=== PATIENT | female | born 1940 | race Caucasian/White ===

== ENCOUNTER 2022-01-13 14:17 | Inpatient (IN) | payer MEDICARE, MEDICAID ==
[~2022-01-13] VITALS: Ht 152.4 cm; Wt 48.6 kg
[2022-01-13] VITALS (22 sets, daily range): BP systolic 80–202; BP diastolic 21–108
[~2022-01-13 14:17] MED LIST: TRAM50TA3 PO
[2022-01-13] MEDS ORDERED: ATROPINE SULFATE 0.1MG/ML 10ML DISP.SYRIN IV ONE (14:45)
[2022-01-13] MEDS ORDERED: ATROPINE SULFATE 1MG/ML VIAL IV PRN (15:00)
[2022-01-13 15:40] LABS: BASOPHILS % 0.5 % (0.0-2.0); EOSINOPHILS % 2.4 % (0.0-5.0); HEMATOCRIT. 28.3 % (36.0-48.0); HEMOGLOBIN. 9.6 g/dL (12.0-16.0); LYMPHOCYTES % 24.1 % (20.0-50.0); MEAN CORPUSCULAR HEMOGLOBIN 29.3 pg (28.0-32.0); MEAN CORPUSCULAR VOLUME 86.7 fL (81.0-99.0); MEAN PLATELET VOLUME 9.2 fl (7.4-10.4); MONOCYTES % 10.5 % (2.0-8.0); NEUTROPHILS % 62.5 % (40.0-76.0); PLATELET 77 x1000/uL (130-400); RED BLOOD CELL COUNT 3.27 mill/uL (4.2-5.4); RED CELL DISTRIBUTION WIDTH 14.8 % (11.6-14.6)
[2022-01-13 15:45] LABS: PROTHROMBIN TIME 11.2 sec (9.6-11.0)
[2022-01-13 15:48] LABS: CHLORIDE 111 mEq/L (98-107)
[2022-01-13 16:35] LABS: CLARITY URINE TURBID (CLEAR); COLOR URINE RED (YELLOW); KETONES URINE NEGATIVE (NEGATIVE); LEUKOCYTE ESTERASE URINE 2+ (NEGATIVE); NITRITE URINE POSITIVE (NEGATIVE); OCCULT BLOOD URINE 2+ (NEGATIVE); PROTEIN URINE 3+ (NEGATIVE); SPECIFIC GRAVITY URINE 1.013 (1.005-1.030); UROBILINOGEN URINE 0.2 E.U./dL (0.2-1.0)
[2022-01-13] MEDS ORDERED: DOPAMINE 400MG/250ML PREMIX 250 ML IV ONE (16:45)
[2022-01-13 17:16] LABS: *AMPHETAMINES SCREEN URINE NEGATIVE (NEGATIVE); *BARBITURATES SCREEN URINE NEGATIVE (NEGATIVE); *BENZODIAZEPINES SCREEN URINE NEGATIVE (NEGATIVE); *COCAINE SCREEN URINE NEGATIVE (NEGATIVE); CANNABINOID URINE SCREEN NEGATIVE (NEGATIVE); METHADONE URINE SCREEN NEGATIVE (NEGATIVE); OPIATES URINE SCREEN NEGATIVE (NEGATIVE); PHENCYCLIDINE URINE SCREEN NEGATIVE (NEGATIVE)
[2022-01-13] MEDS ORDERED: DOPAMINE 400MG/250ML PREMIX 250 ML IV PRN (20:00)
[2022-01-13] MEDS ORDERED: ATROPINE SULFATE 1MG/10ML SYR IV PRN (20:00)
[2022-01-13] MEDS ORDERED: NALOXONE HCL 0.4MG/ML VIAL IV PRN (20:15)
[2022-01-13] MEDS: MORPHINE SULFATE 2 MG/ML CPJ (NOT FOR IM USE) IV PRN (20:18)
[2022-01-13] MEDS ORDERED: LORAZEPAM 2MG/ML CPJ IV PRN (20:45)
[2022-01-13] MEDS ORDERED: ONDANSETRON HCL 4MG/2ML INJ IV PRN (20:45)
[2022-01-13] MEDS ORDERED: CLONIDINE 0.1MG TABLET PO PRN (20:45)
[2022-01-13] MEDS ORDERED: GUAIFENESIN 200MG/10ML SUGAR FREE UDC PO PRN (20:45)
[2022-01-13] MEDS ORDERED: ACETAMINOPHEN 325MG TABLET PO PRN (20:45)
[2022-01-13] MEDS ORDERED: ACETAMINOPHEN 650MG SUPP PR PRN ×2 (20:45)
[2022-01-13] MEDS ORDERED: DOCUSATE SODIUM 100MG CAPSULE PO PRN (20:45)
[2022-01-13] MEDS ORDERED: MAGNESIUM/ALUMINUM HYDROXIDE/SIMETHICONE 30ML UDC PO PRN (20:45)
[2022-01-13] MEDS ORDERED: IPRATROPIUM/ALBUTEROL 0.5-3(2.5)MG/3ML NEB HHN PRN (20:45)
[2022-01-13] MEDS ORDERED: LISI20TA31 PO (21:43)
[2022-01-13] MEDS ORDERED: CYAN25004 SL (21:44)
[2022-01-14] VITALS (49 sets, daily range): BP systolic 114–175; BP diastolic 19–127
[2022-01-14] MEDS: PIPERACILLIN/TAZOBACTAM 3.375 G in DEXTROSE 5% WATER 50 ML IV SCH ×3 (00:12→13:31)
[2022-01-14] MEDS ORDERED: VITA250012 MT (02:40)
[2022-01-14] MEDS ORDERED: CIPR250S3 PO (02:40)
[2022-01-14] MEDS: MORPHINE SULFATE 2 MG/ML CPJ (NOT FOR IM USE) IV PRN (03:46)
[2022-01-14 06:08] LABS: CHLORIDE 113 mEq/L (98-107)
[2022-01-14 06:11] LABS: BASOPHILS % 0.3 % (0.0-2.0); EOSINOPHILS % 0.5 % (0.0-5.0); HEMATOCRIT. 25.2 % (36.0-48.0); HEMOGLOBIN. 8.4 g/dL (12.0-16.0); LYMPHOCYTES % 15.4 % (20.0-50.0); MEAN CORPUSCULAR HEMOGLOBIN 28.8 pg (28.0-32.0); MEAN CORPUSCULAR VOLUME 86.2 fL (81.0-99.0); MEAN PLATELET VOLUME 9.4 fl (7.4-10.4); MONOCYTES % 13.8 % (2.0-8.0); PLATELET 69 x1000/uL (130-400); RED BLOOD CELL COUNT 2.92 mill/uL (4.2-5.4); RED CELL DISTRIBUTION WIDTH 14.8 % (11.6-14.6)
[2022-01-14 06:21] LABS: HDL CHOLESTEROL 31 mg/dL (40-59); LDL CHOLESTEROL 53 mg/dL (5-100)
[2022-01-14 06:31] LABS: CREATINE KINASE 185 IU/L (26-192)
[2022-01-14] MEDS: SODIUM CHLORIDE 0.9% 500 ML IV SCH ×2 (10:33→16:40)
[2022-01-14 12:35] LABS: T4 FREE 1.21 ng/dL (0.76-1.46)
[2022-01-14 16:02] LABS: CREATINE KINASE MB FRACTION 4.7 ng/mL (0.5-3.6)
[2022-01-14] MEDS: LISINOPRIL 20MG TABLET PO SCH (17:45)
[2022-01-14] MEDS: PANTOPRAZOLE 40MG DR TABLET PO SCH (18:12)
[2022-01-14] MEDS ORDERED: CEFTRIAXONE 1 G PREMIX 50 ML IV SCH (21:15)
[2022-01-14] MEDS: SODIUM CHLORIDE 0.9% 1,000 ML IV SCH (21:56)
[2022-01-14] MEDS: CEFTRIAXONE 1,000 MG in DEXTROSE 5% WATER 50 ML IV SCH (23:05)
[2022-01-15] VITALS (36 sets, daily range): BP systolic 101–175; BP diastolic 26–98
[2022-01-15] MEDS: HYDRALAZINE 20MG/ML VIAL IV PRN (00:32)
[2022-01-15 00:47] LABS: HEMATOCRIT 24.8 % (36.0-48.0); HEMOGLOBIN 8.3 g/dL (12.0-16.0)
[2022-01-15 01:27] LABS: CREATINE KINASE MB FRACTION 3.9 ng/mL (0.5-3.6)
[2022-01-15 06:02] LABS: CHLORIDE 114 mEq/L (98-107)
[2022-01-15 06:18] LABS: HEMATOCRIT 24.4 % (36.0-48.0); HEMOGLOBIN 8.2 g/dL (12.0-16.0); MEAN CORPUSCULAR HEMOGLOBIN 29.1 pg (28.0-32.0); MEAN CORPUSCULAR VOLUME 86.7 fL (81.0-99.0); PLATELET 58 x1000/uL (130-400); RED BLOOD CELL COUNT 2.81 mill/uL (4.2-5.4); RED CELL DISTRIBUTION WIDTH 15.1 % (11.6-14.6)
[2022-01-15 06:23] LABS: CREATINE KINASE 348 IU/L (26-192); CREATINE KINASE MB FRACTION 3.8 ng/mL (0.5-3.6)
[2022-01-15 06:29] LABS: HAPTOGLOBIN < 8 mg/dL (30-200)
[2022-01-15] MEDS: ACETAMINOPHEN 325MG TABLET PO PRN (07:44)
[2022-01-15] MEDS: PANTOPRAZOLE 40MG DR TABLET PO SCH (07:44)
[2022-01-15] MEDS: LISINOPRIL 20MG TABLET PO SCH ×3 (09:00→17:43)
[2022-01-15 16:24] LABS: CLARITY URINE CLOUDY (CLEAR); COLOR URINE YELLOW (YELLOW); KETONES URINE NEGATIVE (NEGATIVE); LEUKOCYTE ESTERASE URINE 3+ (NEGATIVE); NITRITE URINE NEGATIVE (NEGATIVE); OCCULT BLOOD URINE 3+ (NEGATIVE); PH URINE 5.5 (4.5-8.0); PROTEIN URINE 1+ (NEGATIVE); SPECIFIC GRAVITY URINE 1.014 (1.005-1.030); UROBILINOGEN URINE 0.2 E.U./dL (0.2-1.0)
[2022-01-15 18:31] LABS: HEMATOCRIT. 26.2 % (36.0-48.0); HEMOGLOBIN. 8.7 g/dL (12.0-16.0); MEAN CORPUSCULAR HEMOGLOBIN 28.8 pg (28.0-32.0); MEAN CORPUSCULAR VOLUME 86.6 fL (81.0-99.0); MEAN PLATELET VOLUME 9.6 fl (7.4-10.4); PLATELET 60 x1000/uL (130-400); RED BLOOD CELL COUNT 3.03 mill/uL (4.2-5.4); RED CELL DISTRIBUTION WIDTH 15.3 % (11.6-14.6)
[2022-01-15 20:00] LABS: PLATELET ESTIMATE DECREASED
[2022-01-15] MEDS: CEFTRIAXONE 1,000 MG in DEXTROSE 5% WATER 50 ML IV SCH (21:44)
[2022-01-15] MEDS: SODIUM CHLORIDE 0.9% 1,000 ML IV SCH (21:44)
[2022-01-16] VITALS (25 sets, daily range): BP systolic 82–175; BP diastolic 31–80
[2022-01-16] MEDS: HYDRALAZINE 20MG/ML VIAL IV PRN (02:20)
[2022-01-16 06:02] LABS: BASOPHILS % 0.7 % (0.0-2.0); EOSINOPHILS % 1.8 % (0.0-5.0); HEMATOCRIT. 27.5 % (36.0-48.0); HEMOGLOBIN. 9.2 g/dL (12.0-16.0); LYMPHOCYTES % 17.2 % (20.0-50.0); MEAN CORPUSCULAR HEMOGLOBIN 29.1 pg (28.0-32.0); MEAN CORPUSCULAR VOLUME 86.4 fL (81.0-99.0); MEAN PLATELET VOLUME 9.9 fl (7.4-10.4); MONOCYTES % 10.3 % (2.0-8.0); PLATELET 80 x1000/uL (130-400); RED BLOOD CELL COUNT 3.18 mill/uL (4.2-5.4); RED CELL DISTRIBUTION WIDTH 15.2 % (11.6-14.6)
[2022-01-16] MEDS: PANTOPRAZOLE 40MG DR TABLET PO SCH (08:01)
[2022-01-16] MEDS: LISINOPRIL 20MG TABLET PO SCH ×2 (08:02→18:02)
[2022-01-16 09:11] LABS: ANTI-NUCLEAR ANTIBODIES DIRECT Negative (Negative); IMMUNOGLOBULIN A 452 mg/dL (64-422); IMMUNOGLOBULIN G 1334 mg/dL (586-1602); IMMUNOGLOBULIN M 180 mg/dL (26-217)
[2022-01-16 09:30] LABS: CREATINE KINASE 269 IU/L (26-192)
[2022-01-16] MEDS: ACETAMINOPHEN 325MG TABLET PO PRN (14:14)
[2022-01-16] MEDS: CEFTRIAXONE 1,000 MG in DEXTROSE 5% WATER 50 ML IV SCH (21:29)
[2022-01-17] VITALS (51 sets, daily range): BP systolic 90–172; BP diastolic 30–130
[2022-01-17] MEDS: SODIUM CHLORIDE 0.9% 1,000 ML IV SCH ×2 (01:25→21:16)
[2022-01-17] MEDS: HYDRALAZINE 20MG/ML VIAL IV PRN ×2 (03:26→18:53)
[2022-01-17 05:46] LABS: HEMATOCRIT 23.6 % (36.0-48.0); HEMOGLOBIN 8.1 g/dL (12.0-16.0); MEAN CORPUSCULAR HEMOGLOBIN 29.7 pg (28.0-32.0); PLATELET 52 x1000/uL (130-400); RED BLOOD CELL COUNT 2.74 mill/uL (4.2-5.4); RED CELL DISTRIBUTION WIDTH 15.2 % (11.6-14.6)
[2022-01-17] MEDS: PANTOPRAZOLE 40MG DR TABLET PO SCH (08:48)
[2022-01-17] MEDS: LISINOPRIL 20MG TABLET PO SCH ×2 (08:49→17:15)
[2022-01-17] MEDS: CEFTRIAXONE 1,000 MG in DEXTROSE 5% WATER 50 ML IV SCH (20:03)
[2022-01-18] VITALS (33 sets, daily range): BP systolic 90–181; BP diastolic 24–113
[2022-01-18] MEDS: HYDRALAZINE 20MG/ML VIAL IV PRN ×2 (05:35→22:21)
[2022-01-18 06:02] LABS: HEMATOCRIT 24.6 % (36.0-48.0); HEMOGLOBIN 8.5 g/dL (12.0-16.0); MEAN CORPUSCULAR HEMOGLOBIN 29.9 pg (28.0-32.0); MEAN CORPUSCULAR VOLUME 86.9 fL (81.0-99.0); PLATELET 55 x1000/uL (130-400); RED BLOOD CELL COUNT 2.83 mill/uL (4.2-5.4); RED CELL DISTRIBUTION WIDTH 15.2 % (11.6-14.6)
[2022-01-18] MEDS: LISINOPRIL 20MG TABLET PO SCH ×2 (09:03→17:21)
[2022-01-18] MEDS: PANTOPRAZOLE 40MG DR TABLET PO SCH (09:03)
[2022-01-18] MEDS: CEFTRIAXONE 1,000 MG in DEXTROSE 5% WATER 50 ML IV SCH (21:15)
[2022-01-19] VITALS (46 sets, daily range): BP systolic 111–178; BP diastolic 23–130
[2022-01-19] MEDS: SODIUM CHLORIDE 0.9% 1,000 ML IV SCH (00:55)
[2022-01-19 05:15] LABS: CLARITY URINE CLOUDY (CLEAR); COLOR URINE YELLOW (YELLOW); KETONES URINE NEGATIVE (NEGATIVE); LEUKOCYTE ESTERASE URINE 2+ (NEGATIVE); NITRITE URINE NEGATIVE (NEGATIVE); OCCULT BLOOD URINE 3+ (NEGATIVE); PROTEIN URINE 2+ (NEGATIVE); SPECIFIC GRAVITY URINE 1.018 (1.005-1.030); UROBILINOGEN URINE 0.2 E.U./dL (0.2-1.0)
[2022-01-19 06:04] LABS: BASOPHILS % 0.5 % (0.0-2.0); EOSINOPHILS % 2.5 % (0.0-5.0); HEMATOCRIT. 26.7 % (36.0-48.0); HEMOGLOBIN. 9.1 g/dL (12.0-16.0); LYMPHOCYTES % 17.2 % (20.0-50.0); MEAN CORPUSCULAR HEMOGLOBIN 29.7 pg (28.0-32.0); MEAN CORPUSCULAR VOLUME 87.3 fL (81.0-99.0); MEAN PLATELET VOLUME 10.1 fl (7.4-10.4); MONOCYTES % 9.5 % (2.0-8.0); NEUTROPHILS % 70.3 % (40.0-76.0); PLATELET 70 x1000/uL (130-400); RED BLOOD CELL COUNT 3.06 mill/uL (4.2-5.4); RED CELL DISTRIBUTION WIDTH 15.7 % (11.6-14.6)
[2022-01-19 06:11] LABS: INR 1.1; PROTHROMBIN TIME 11.8 sec (9.6-11.0)
[2022-01-19 07:15] LABS: CHLORIDE 118 mEq/L (98-107)
[2022-01-19] MEDS: PANTOPRAZOLE 40MG DR TABLET PO SCH (08:20)
[2022-01-19] MEDS: HYDRALAZINE 20MG/ML VIAL IV PRN (09:25)
[2022-01-19] MEDS: CEFTRIAXONE 1,000 MG in DEXTROSE 5% WATER 50 ML IV SCH (21:25)
[2022-01-20] VITALS (62 sets, daily range): BP systolic 107–185; BP diastolic 30–105
[2022-01-20] MEDS: ACETAMINOPHEN 325MG TABLET PO PRN (02:19)
[2022-01-20] MEDS: SODIUM CHLORIDE 0.9% 1,000 ML IV SCH ×2 (03:16→21:30)
[2022-01-20] MEDS: HYDRALAZINE 20MG/ML VIAL IV PRN ×2 (03:17→12:06)
[2022-01-20 04:30] LABS: HEMATOCRIT 23.3 % (36.0-48.0); HEMOGLOBIN 7.8 g/dL (12.0-16.0); MEAN CORPUSCULAR HEMOGLOBIN 29.6 pg (28.0-32.0); MEAN CORPUSCULAR VOLUME 88.2 fL (81.0-99.0); PLATELET 57 x1000/uL (130-400); RED BLOOD CELL COUNT 2.64 mill/uL (4.2-5.4)
[2022-01-20 04:49] LABS: INR 1.2; PROTHROMBIN TIME 12.6 sec (9.6-11.0)
[2022-01-20] MEDS: PANTOPRAZOLE 40MG DR TABLET PO SCH (07:20)
[2022-01-20] MEDS ORDERED: IODIXANOL 320MG/ML 100 ML BOTTLE IV ONE (09:01)
[2022-01-20] MEDS ORDERED: LIDOCAINE HCL/PF 1% 10 MG/ML 5ML VIAL ONE (09:10)
[2022-01-20] MEDS ORDERED: GENTAMICIN/NS IRRIGATION 500 ML IR ONE (09:10)
[2022-01-20] MEDS ORDERED: CEFAZOLIN SODIUM 1000MG/VIAL ONE (09:25)
[2022-01-20] MEDS ORDERED: FENTANYL CITRATE/PF 50MCG/ML 2ML VIAL ONE (09:29)
[2022-01-20] MEDS ORDERED: PROPOFOL 200MG/20ML VIAL IV ONE (09:29)
[2022-01-20] MEDS ORDERED: MIDAZOLAM HCL 2 MG/2 ML VIAL ONE (09:30)
[2022-01-20] MEDS ORDERED: GLYCOPYRROLATE 0.2 MG/ML 2ML VIAL ONE (09:42)
[2022-01-20] MEDS ORDERED: ONDANSETRON HCL 4MG/2ML INJ IV PRN (10:00)
[2022-01-20] MEDS ORDERED: LABETALOL 5MG/ML SYR 20 MG/4 ML SYRINGE IV PRN (10:00)
[2022-01-20] MEDS ORDERED: MEPERIDINE HCL/PF 25MG/ML CPJ IV PRN (10:00)
[2022-01-20] MEDS ORDERED: HYDROMORPHONE HCL/PF 2MG/ML CPJ IV PRN (10:00)
[2022-01-20] MEDS ORDERED: GENTAMICIN SULF 40MG/ML 2ML VIAL ONE (10:18)
[2022-01-20] MEDS ORDERED: HYDROCODONE/ACETAMINOPHEN 5/325MG TABLET PO PRN (15:45)
[2022-01-21] VITALS (36 sets, daily range): BP systolic 128–205; BP diastolic 25–95
[2022-01-21 05:40] LABS: HEMATOCRIT. 24.2 % (36.0-48.0); HEMOGLOBIN. 8.3 g/dL (12.0-16.0); MEAN CORPUSCULAR HEMOGLOBIN 30.3 pg (28.0-32.0); MEAN CORPUSCULAR VOLUME 88.7 fL (81.0-99.0); MEAN PLATELET VOLUME 10.1 fl (7.4-10.4); PLATELET 56 x1000/uL (130-400); RED BLOOD CELL COUNT 2.73 mill/uL (4.2-5.4); RED CELL DISTRIBUTION WIDTH 16.3 % (11.6-14.6)
[2022-01-21] MEDS: PANTOPRAZOLE 40MG DR TABLET PO SCH (06:22)
[2022-01-21 07:56] LABS: PLATELET ESTIMATE DECREASED
== END 2022-01-21 13:30 | disposition home health service (06) | DRG 710 ==
LOC: ER 14:17 → 5EST 16:06 → EDBEDREQ 16:08 → EDBEDREQTM 16:08 → MICUNO 01-19 12:30
PROVIDERS: ADMIT Family Medicine Adult Medicine; ATTEND Family Medicine Adult Medicine
PROC: 0JH606Z Insertion of Pacemaker, Dual Chamber into Chest Subcutaneous Tissue and Fascia, Open Approach (ICD-10-PCS; principal; 2022-01-20)
PROC: 02HK3JZ Insertion of Pacemaker Lead into Right Ventricle, Percutaneous Approach (ICD-10-PCS; 2022-01-20)
PROC: 02H63JZ Insertion of Pacemaker Lead into Right Atrium, Percutaneous Approach (ICD-10-PCS; 2022-01-20)
DX: A41.51 Sepsis due to Escherichia coli [E. coli] (principal); I21.4 Non-ST elevation (NSTEMI) myocardial infarction; I44.2 Atrioventricular block, complete; D61.818 Other pancytopenia; N17.9 Acute kidney failure, unspecified; D69.6 Thrombocytopenia, unspecified; I95.9 Hypotension, unspecified; N30.91 Cystitis, unspecified with hematuria; E11.9 Type 2 diabetes mellitus without complications; D64.9 Anemia, unspecified; Z20.822 Contact with and (suspected) exposure to COVID-19; I10 Essential (primary) hypertension; I25.10 Atherosclerotic heart disease of native coronary artery without angina pectoris; N26.1 Atrophy of kidney (terminal); M85.80 Other specified disorders of bone density and structure, unspecified site; R00.1 Bradycardia, unspecified; R55 Syncope and collapse; R31.9 Hematuria, unspecified; R42 Dizziness and giddiness; R79.89 Other specified abnormal findings of blood chemistry; R80.9 Proteinuria, unspecified; Z79.899 Other long term (current) drug therapy
CPT/HCPCS: 33208; 36415; 71045; 75820; 76770; 80048; 80053; 80061; 80305; 81003; 82550; 82553; 82607; 82728; 82746; 82784; 82962; 83010; 83036; 83605; 83615; 83880; 84145; 84439; 84443; 84484; 85014; 85018; 85025; 85027; 85044; 85379; 86038; 86334; 86850; 86880; 86900; 87077; 87186; 87426; 93005; 93306; 93970; 99291; A4565; C1785; C1893; C1898; J0360; J0461; J0690; J0696; J1265; J1580; J2250; J2270; J2405; J2543; J2704; J3010; J3490; J7030; J7060; Q9967; A4315

== ENCOUNTER 2022-03-11 09:33 | Inpatient (IN) | payer MEDICARE, MEDICAID ==
[~2022-03-11] VITALS: Ht 157.5 cm; Wt 33.8 kg
[~2022-03-11 09:33] MED LIST changes: +CIPR250S3 PO; +CYAN25004 SL; +LISI20TA31 PO; +VITA250012 MT
[2022-03-11 10:25] LABS: BASOPHILS % 0.7 % (0.0-2.0); EOSINOPHILS % 1.8 % (0.0-5.0); HEMATOCRIT. 33.4 % (36.0-48.0); LYMPHOCYTES % 23.6 % (20.0-50.0); MEAN CORPUSCULAR HEMOGLOBIN 28.3 pg (28.0-32.0); MEAN PLATELET VOLUME 9.7 fl (7.4-10.4); MONOCYTES % 9.5 % (2.0-8.0); NEUTROPHILS % 64.4 % (40.0-76.0); PLATELET 75 x1000/uL (130-400); RED BLOOD CELL COUNT 3.89 mill/uL (4.2-5.4)
[2022-03-11 10:34] LABS: CHLORIDE 111 mEq/L (98-107)
[2022-03-11] MEDS ORDERED: MORPHINE SULFATE 2 MG/ML CPJ (NOT FOR IM USE) IV ONE (10:45)
[2022-03-11] MEDS ORDERED: FUROSEMIDE 20MG/2ML VIAL IVP NR (11:00)
[2022-03-11] MEDS ORDERED: ENALAPRIL 1.25MG/ML VIAL 1ML IV NR (11:30)
[2022-03-11 14:23] LABS: CLARITY URINE CLEAR (CLEAR); COLOR URINE YELLOW (YELLOW); KETONES URINE NEGATIVE (NEGATIVE); LEUKOCYTE ESTERASE URINE NEGATIVE (NEGATIVE); NITRITE URINE NEGATIVE (NEGATIVE); OCCULT BLOOD URINE 1+ (NEGATIVE); PH URINE 5.5 (4.5-8.0); PROTEIN URINE 2+ (NEGATIVE); SPECIFIC GRAVITY URINE 1.012 (1.005-1.030); UROBILINOGEN URINE 0.2 E.U./dL (0.2-1.0)
[2022-03-11] MEDS ORDERED: ACETAMINOPHEN 325MG TABLET PO PRN (15:45)
[2022-03-11] MEDS ORDERED: ONDANSETRON HCL 4MG/2ML INJ IV PRN (15:45)
[2022-03-11 16:00] VITALS: BP 151/74
[2022-03-11] MEDS: FUROSEMIDE 40MG/4ML VIAL IVP SCH ×2 (16:21→17:00)
[2022-03-11 17:30] VITALS: BP 169/84
[2022-03-11 20:00] VITALS: BP 161/78
[2022-03-12] VITALS (7 sets, daily range): BP systolic 111–155; BP diastolic 50–72
[2022-03-12 07:31] LABS: BASOPHILS % 0.6 % (0.0-2.0); EOSINOPHILS % 2.5 % (0.0-5.0); HEMATOCRIT. 29.9 % (36.0-48.0); HEMOGLOBIN. 10.1 g/dL (12.0-16.0); LYMPHOCYTES % 24.4 % (20.0-50.0); MEAN CORPUSCULAR HEMOGLOBIN 28.4 pg (28.0-32.0); MEAN CORPUSCULAR VOLUME 84.3 fL (81.0-99.0); MEAN PLATELET VOLUME 10.2 fl (7.4-10.4); MONOCYTES % 10.5 % (2.0-8.0); PLATELET 72 x1000/uL (130-400); RED BLOOD CELL COUNT 3.55 mill/uL (4.2-5.4); RED CELL DISTRIBUTION WIDTH 14.9 % (11.6-14.6)
[2022-03-12] MEDS: FUROSEMIDE 40MG/4ML VIAL IVP SCH ×2 (08:26→16:38)
[2022-03-12] MEDS: ASPIRIN 81MG TABLET PO SCH (08:26)
[2022-03-12] MEDS ORDERED: FURO-151 MT (13:03)
[2022-03-12] MEDS: METOPROLOL TARTRATE 25MG TABLET PO SCH (20:10)
[2022-03-12] MEDS: ATORVASTATIN CALCIUM 40MG TABLET PO SCH (20:10)
[2022-03-13 04:00] VITALS: BP 143/67
[2022-03-13] MEDS: METOPROLOL TARTRATE 25MG TABLET PO SCH (08:25)
[2022-03-13] MEDS: ASPIRIN 81MG TABLET PO SCH (08:25)
[2022-03-13] MEDS: FUROSEMIDE 40MG/4ML VIAL IVP SCH ×2 (08:26→16:51)
[2022-03-13 08:46] VITALS: BP 137/50
[2022-03-13 10:33] VITALS: BP_SYST 137; BP_SYST 149; BP_DIAS 50; BP_DIAS 62
[2022-03-13 12:00] VITALS: BP 142/51
[2022-03-13 16:41] VITALS: BP 131/51
[2022-03-13 19:50] VITALS: BP 138/52
[2022-03-13] MEDS: CARVEDILOL 6.25 MG TABLET PO SCH (20:02)
[2022-03-13] MEDS: ATORVASTATIN CALCIUM 40MG TABLET PO SCH (20:06)
[2022-03-14] VITALS (8 sets, daily range): BP systolic 77–149; BP diastolic 36–66
[2022-03-14] MEDS: ASPIRIN 81MG TABLET PO SCH (08:28)
[2022-03-14] MEDS: FUROSEMIDE 40MG/4ML VIAL IVP SCH (08:29)
[2022-03-14] MEDS: CARVEDILOL 6.25 MG TABLET PO SCH (08:29)
[2022-03-14] MEDS ORDERED: LOSARTAN POTASSIUM 25 MG TABLET PO SCH (09:00)
[2022-03-14] MEDS ORDERED: COR6 PO (09:18)
[2022-03-14] MEDS ORDERED: SODIUM CHLORIDE 0.9% 250 ML IV SCH (11:00)
== END 2022-03-14 14:00 | disposition home or self-care (01) | DRG 190 ==
LOC: ER 09:42 → EDBEDREQ 12:06 → 8WST 12:52 → EDBEDREQ 12:54 → EDBEDREQTM 12:54 → ENRESERV 16:08
PROVIDERS: ADMIT Internal Medicine; ATTEND Internal Medicine
DX: I21.4 Non-ST elevation (NSTEMI) myocardial infarction (principal); I50.21 Acute systolic (congestive) heart failure; E44.1 Mild protein-calorie malnutrition; I11.0 Hypertensive heart disease with heart failure; E11.9 Type 2 diabetes mellitus without complications; E78.5 Hyperlipidemia, unspecified; Z95.0 Presence of cardiac pacemaker
CPT/HCPCS: 36415; 71045; 80048; 80053; 81003; 83880; 84484; 85025; 93005; 93306; 99285; J1940; J2270